=== PATIENT | male | born 1980 | race Caucasian/White ===

== ENCOUNTER 2018-08-24 06:50 | Day surgery (SDC) | payer OTHER, BC ==
[~2018-08-24] VITALS: Ht 180.3 cm; Wt 136.1 kg
[~2018-08-24 06:50] MED LIST: IBUPROFEN200 M1 PO; SERTRALINE HCL50 MG PO; TYLENOL EXTRA500 MG PO; WELLBUTRIN XL300 MG PO
--- NOTE | 2018-08-24 09:00 | NUR ---
PATIENT TO SURGERY.
[2018-08-24] MEDS ORDERED: HYDROCODON-ACE1 EA11 PO (09:34)
[2018-08-24] MEDS ORDERED: DICLOFENAC SODI75 MG PO (09:34)
--- NOTE | 2018-08-24 10:00 | NUR ---
08/24/18 Ashley Pascal 7787 PT ARRIVED TO PACU WITH ENERGY ANALYST AND OR STAFF. PT SITTING UP IN BED STATING "I CAN'T BREATH, MY THROAT IS SWELLING." ENERGY ANALYST TALKING WITH PT. O2 MASK IN PLACE, HELD BY PT. PT REMAIN ANXIOUS AFTER SEVERAL ATTEMPTS BY STAFF TO REDIRECT. REPORT RECVD FROM ENERGY ANALYST. 0950 MULTIPLE STAFF AT BEDSIDE. UNABLE TO OBTAIN BP DUE TO PT MOVEMENT. PT REMAINS ANXIOUS STATING "MY THROAT FEELS SWOLLEN, I CANT BREATH." [address] VIA MASK HELD BY PT. ICE CHIPS GIVEN FOR PT COMFORT. 0958 PT APPEARS MORE COMFORTABLE AT THIS TIME. TALKING WITH STAFF. VITALS OBTAINED.
--- NOTE | 2018-08-24 10:47 | NUR ---
PATIENT RETURNED FROM SURGERY AT 1020. PATIENT UP TO VOID, PO INTAKE AND PO MEDICATIONS BY 1035. PATIENT RATES RIGHT KNEE PAIN 4/10, ICE APPLIED. X3 INCISIONS INTACT WITH SUTURES, VASELINE GUAZE AND CRISTINA, MINIMAL DRAINAGE NOTED. PATIENT ABLE TO AMBULATE TO BATHROOM WITH STANDBY ASSIST.
--- NOTE | 2018-08-24 11:34 | NUR ---
PATIENT DISCHARGED TO HOME. PATIENT GIVEN WHEELCHAIR RIDE TO FRONT DOOR. PATIENT PLACED SELF IN PASSENGER SEAT FOR SPOUSE TO TRANSPORT HOME.
--- NOTE | 2018-08-25 09:13 | OR ---
[facility] [address], [place] [address] Signed DATE OF OPERATION: 08/24/2018 SURGEON: Felicia Laird MD PREOPERATIVE DIAGNOSIS: Medial meniscus tear, right knee. POSTOPERATIVE DIAGNOSIS: Medial meniscus tear, right knee. PROCEDURE PERFORMED: Right knee arthroscopy with partial medial meniscectomy. HEADMASTER/MISTRESS: Janae uJlian PA-C. Janae was present in critical positioning, camera holding, and wound closure. ANESTHESIA: General. BLOOD LOSS: Minimal. TOURNIQUET TIME: None. BRIEF HISTORY: Alvaro is a 38-year-old gentleman who underwent ACL reconstruction last year and did quite well. He subsequently re-injured his knee and repeat MRI showed the ACL reconstruction being good shape with a posterior medial meniscus tear. Risks, benefits, and alternatives were discussed with him and he elected to proceed. DESCRIPTION OF PROCEDURE: Once consent was obtained, he was taken to the operating room. After adequate anesthesia, he was placed on the operating table. The left leg was flexed, abducted, and internally rotated on a well-padded leg price. The right leg was placed in well-padded proximal thigh tourniquet and placed on the leg price. Port sites were pre-injected using 0.25% Marcaine with epinephrine under alcohol prep. The leg was prepped and draped in a standard sterile fashion and the previous inferolateral and superolateral portals were reestablished. Scope was introduced in the knee. Electronically Signed By: FELICIA LAIRD MD 08/25/18 0913 PATIENT NAME: ALVARO BELLAMY IV OPERATIVE REPORT DATE OF : 84 REPORT #: [id number] PHYSICIAN: FELICIA LAIRD MD PCP: TJ TONY MD REPORT IS CONFIDENTIAL AND NOT TO BE RELEASED WITHOUT AUTHORIZATION [address] [address] Signed ARTHROSCOPIC FINDINGS: Condylar surfaces were intact with the exception of some minor fraying of the medial femoral condyle. The ACL was in excellent condition and good position. The patella was noted to track well. Medial and lateral gutters were clear. The lateral meniscus was intact. The posterior medial meniscus showed a radial tear about a cm long that was unstable. DESCRIPTION OF OPERATION: Prior inferomedial portal was established and the straight biter and shaver used to trim the meniscus tear back to a stable rim, anteriorly and posteriorly. All debris was evacuated. The scope was withdrawn. Portals were closed with 3-0 nylon and dressed with Adaptic, ABD, and Héctor wrap. He tolerated the procedure well. All sponge, needle, and instrument counts were correct. Felicia Laird MD BA/SUMI /[id number] Copies: ~ Electronically Signed By: FELICIA LAIRD MD 08/25/18 0913 PATIENT NAME: ALVARO BELLAMY IV OPERATIVE REPORT DATE OF : 84 REPORT #: [id number] PHYSICIAN: FELICIA LAIRD MD PCP: TJ TONY MD REPORT IS CONFIDENTIAL AND NOT TO BE RELEASED WITHOUT AUTHORIZATION
== END 2018-08-24 11:25 | disposition home or self-care (01) ==
LOC: DS 06:50
PROVIDERS: Specialist
PROC: 0SBC4ZZ Excision of Right Knee Joint, Percutaneous Endoscopic Approach (ICD-10-PCS; principal; 2018-08-24 08:45)
DX: S83.241A Other tear of medial meniscus, current injury, right knee, initial encounter (principal); I10 Essential (primary) hypertension; F32.9 Major depressive disorder, single episode, unspecified; Z79.899 Other long term (current) drug therapy
CPT/HCPCS: 01400; J0131; J0171; J0330; J0690; J1100; J1200; J1885; J2250; J2405; J2550; J2704; J3475; J7120